=== PATIENT | female | born 1980 | race Caucasian/White ===

== ENCOUNTER 2021-08-11 09:06 | Day surgery (SDC) | payer BC ==
[2021-08-06 15:18] VITALS: BMI 28.1
[2021-08-11 09:26] VITALS: TEMP 97.8
[2021-08-11] MEDS ORDERED: PROPOFOL 20 ML ONE ×2 (09:48)
[2021-08-11 11:24] VITALS: BP 106/71; PULSE 80
== END 2021-08-11 11:10 | disposition home or self-care (01) ==
LOC: FASU-ENDO 09:06
PROVIDERS: ATTEND Internal Medicine Gastroenterology
PROC: 0DBN8ZX Excision of Sigmoid Colon, Via Natural or Artificial Opening Endoscopic, Diagnostic (ICD-10-PCS; principal; 2021-08-11 09:49)
DX: Z12.11 Encounter for screening for malignant neoplasm of colon (principal); K63.5 Polyp of colon; K63.89 Other specified diseases of intestine; Z83.71 Family history of colonic polyps
CPT/HCPCS: 84703; 88305-TC